=== PATIENT | male | born 1970 | race Caucasian/White ===

== ENCOUNTER 2019-01-05 06:35 | Day surgery (SDC) | payer OTHER ==
[2019-01-05] MEDS ORDERED: SEVOFLURANE 15 MIN (07:00)
[2019-01-05] MEDS ORDERED: LIDOCAINE 2% (SDV) 5 ML INJ (07:00)
[2019-01-05] MEDS: INSULIN REGULAR, HUMAN 100 UNIT/1 ML 3ML VIAL SC (08:27)
[2019-01-05] MEDS ORDERED: GLUCOSE GEL 15 GRAM TUBE BUCCAL (08:30)
[2019-01-05] MEDS ORDERED: GLUCAGON 1 MG INJ IM (08:30)
[2019-01-05] MEDS ORDERED: DEXTROSE 50% 50 ML SYRINGE IV ×2 (08:30)
[2019-01-05] MEDS ORDERED: GLUCOSE GEL 15 GRAM TUBE PO ×2 (08:30)
[2019-01-05] MEDS ORDERED: ROCURONIUM 50 MG INJ (08:51)
[2019-01-05] MEDS ORDERED: PROPOFOL 20 ML (08:51)
[2019-01-05] MEDS ORDERED: CEFAZOLIN 1 GM INJ (09:00)
[2019-01-05] MEDS ORDERED: DEXAMETHASONE 4 MG/ML 5 ML INJ (09:02)
[2019-01-05] MEDS ORDERED: ONDANSETRON 4 MG INJ (09:02)
[2019-01-05] MEDS: BUPIVACAINE 0.5%/EPI (SDV) 10 ML INJ (09:45)
[2019-01-05] MEDS ORDERED: GLYCOPYRROLATE 0.4 MG INJ (09:50)
[2019-01-05] MEDS ORDERED: NEOSTIGMINE 3 MG/3 ML SYRINGE (09:50)
[2019-01-05] MEDS ORDERED: ONDANSETRON 4 MG INJ IV ×2 (10:00→10:30)
[2019-01-05] MEDS ORDERED: morphine 2 MG INJ IV (10:00)
[2019-01-05] MEDS ORDERED: OXYCODONE/ACETAMINOPHEN (5/325) TAB PO ×4 (10:00→10:30)
[2019-01-05] MEDS ORDERED: HYDROmorphONE 1 MG/5 ML IV SYRINGE IV ×3 (10:30)
[2019-01-05] MEDS ORDERED: METOCLOPRAMIDE 10 MG INJ IV (10:30)
[2019-01-05] MEDS ORDERED: hydrALAzine 20 MG INJ IV (10:30)
[2019-01-05] MEDS ORDERED: ALBUTEROL 0.083% (NEB) 2.5 MG/3 ML AMP HHN (10:30)
[2019-01-05] MEDS ORDERED: MEPERIDINE 25 MG INJ IV (10:30)
[2019-01-05] MEDS ORDERED: EPHEDrine SULFATE 50 MG/5 ML SYG IV (10:30)
[2019-01-05] MEDS ORDERED: DIPHENHYDRAMINE 50 MG INJ IV (10:30)
[2019-01-05] MEDS ORDERED: FENTAnyl 50 MCG/ML VIAL IV ×3 (10:30)
[2019-01-05] MEDS ORDERED: INSULIN ASPART [NOVOLOG] 3 ML PEN SC (10:30)
[2019-01-05] MEDS ORDERED: LABETALOL HCL 20MG INJ IV (10:30)
[2019-01-05] MEDS ORDERED: KETOROLAC 30 MG INJ IV (10:30)
== END 2019-01-05 11:25 | disposition home or self-care (01) ==
LOC: SDS 06:35
DX: K40.90 Unilateral inguinal hernia, without obstruction or gangrene, not specified as recurrent (principal); I10 Essential (primary) hypertension; E11.9 Type 2 diabetes mellitus without complications; Z79.4 Long term (current) use of insulin
CPT/HCPCS: 49505; 82962